=== PATIENT | female | born 1940 | race Caucasian/White ===

== ENCOUNTER 2016-06-06 11:35 | Emergency (ER) | payer OTHER ==
[~2016-06-06] VITALS: Ht 154.9 cm; Wt 45.5 kg
[~2016-06-06 11:35] MED LIST: ATIVAN0.5 MG PO; CALCIUM 500 MG1 EACH PO; HYDROCODON-ACE1 EAC7 PO; IBUPROFEN800 MG PO; OMEPRAZOLE40 M1 PO; PRAVACHOL40 MG PO; VITAMIN D31000 UNI2 PO; ZYRTEC10 M2 PO
[2016-06-06 11:48] VITALS: BP 107/68
== END 2016-06-06 14:51 | disposition home or self-care (01) ==
LOC: EME 11:35
PROC: 2W3CX1Z Immobilization of Right Lower Arm using Splint (ICD-10-PCS; principal; 2016-06-06)
DX: S52.601A Unspecified fracture of lower end of right ulna, initial encounter for closed fracture (principal); S52.501A Unspecified fracture of the lower end of right radius, initial encounter for closed fracture; S09.90XA Unspecified injury of head, initial encounter; W00.0XXA Fall on same level due to ice and snow, initial encounter; Y92.29 Other specified public building as the place of occurrence of the external cause
CPT/HCPCS: 70450; 73090; 73110; 99281; 99285

== ENCOUNTER → 2017-11-28 | Outpatient (CLI) | payer MEDICARE, OTHER | END | disposition home or self-care (01) | LOC: CDC 10:47 | DX: Z01.810 Encounter for preprocedural cardiovascular examination (principal); I45.10 Unspecified right bundle-branch block; R94.31 Abnormal electrocardiogram [ECG] [EKG] | CPT/HCPCS: 93000 ==

== ENCOUNTER 2017-12-09 06:55 | Day surgery (SDC) | payer OTHER ==
[~2017-12-09] VITALS: Ht 152.4 cm; Wt 44.0 kg
[~2017-12-09 06:55] MED LIST changes: +ADULT ASPIRIN81 MG PO; +CLARITIN,ALAVAR10 MG PO; +ZANTAC300 MG PO
[2017-12-09 07:20] VITALS: BP 197/75
[2017-12-09 10:50] VITALS: BP 165/67
== END 2017-12-09 11:20 | disposition home or self-care (01) ==
LOC: SDC 06:55
DX: N13.2 Hydronephrosis with renal and ureteral calculous obstruction (principal); R31.29 Other microscopic hematuria; N13.5 Crossing vessel and stricture of ureter without hydronephrosis; Z85.41 Personal history of malignant neoplasm of cervix uteri; Z92.3 Personal history of irradiation
CPT/HCPCS: C1758; C1769; C2625; J0690; J1100; J2405; J3010; Q0175

== ENCOUNTER → 2018-01-10 | Outpatient (CLI) | payer MEDICARE, OTHER | END | disposition home or self-care (01) | LOC: CDC 11:36 | DX: I45.10 Unspecified right bundle-branch block (principal); R94.31 Abnormal electrocardiogram [ECG] [EKG] | CPT/HCPCS: 93000 ==